=== PATIENT | female | born 1965 | race African-American/Black ===

== ENCOUNTER 2023-10-05 22:37 | Emergency (ER) | payer OTHER ==
[~2023-10-05] VITALS: Ht 167.6 cm; Wt 86.0 kg
[2023-10-05 23:12] VITALS: O2SAT 99
[2023-10-06] MEDS ORDERED: LACTATED RINGERS 1,000 ML IV SCH
[2023-10-06] MEDS ORDERED: METOCLOPRAMIDE HCL 10MG/2ML VIAL IV ONE
[2023-10-06 00:33] LABS: BASOPHILS % 0.3 % (0.0-2.0); HEMATOCRIT. 35.7 % (36.0-48.0); HEMOGLOBIN. 11.6 g/dL (12.0-16.0); LYMPHOCYTES % 53.4 % (20.0-50.0); MEAN CORPUSCULAR HEMOGLOBIN 27.9 pg (28.0-32.0); MEAN CORPUSCULAR HGB CONC 32.5 g/dL (31.0-37.0); MEAN CORPUSCULAR VOLUME 85.8 fL (81.0-99.0); MONOCYTES % 4.3 % (2.0-8.0); PLATELET 282 x1000/uL (130-400); RED BLOOD CELL COUNT 4.16 mill/uL (4.2-5.4); WHITE BLOOD COUNT 6.4 x1000/uL (4.5-11.0)
[2023-10-06 00:34] LABS: POTASSIUM 3.9 mEq/L (3.5-5.1)
[2023-10-06 00:35] LABS: CALCIUM 9.2 mg/dL (8.7-10.4)
[2023-10-06 00:40] LABS: CREATININE 1.2 mg/dL (0.6-1.0)
[2023-10-06] MEDS ORDERED: ACETAMINOPHEN 325MG TABLET PO NR (03:45)
[2023-10-06] MEDS ORDERED: METOCLOPRAMIDE HCL 10MG/2ML VIAL IV NR (03:45)
[2023-10-06] MEDS: ACETAMINOPHEN 325MG TABLET PO ONE (03:47)
[2023-10-06] MEDS ORDERED: KETO10TA2 MT (04:12)
[2023-10-06 04:30] VITALS: BP 143/78; PULSE 77; RESP 14; TEMP 98.6
== END 2023-10-06 04:30 | disposition home or self-care (01) ==
LOC: ER 22:49
DX: R51.9 Headache, unspecified (principal); E11.9 Type 2 diabetes mellitus without complications; Z85.9 Personal history of malignant neoplasm, unspecified
CPT/HCPCS: 36415; 80048; 85025; 99284